=== PATIENT | female | born 1940 | race American Indian/Alaskan Native ===

== ENCOUNTER 2018-05-22 09:18 | Outpatient (CLI) | payer MEDICARE | END 2018-05-22 09:19 | disposition home or self-care (01) | LOC: PAT 09:18 ==

== ENCOUNTER 2018-05-31 09:43 | Day surgery (SDC) | payer MEDICARE ==
[2017-09-28 11:39] VITALS: BMI 30.7
[2018-05-31] MEDS ORDERED: Etomidate 20 mg/10ml Inj IV ONE (12:09)
[2018-05-31] MEDS ORDERED: Propofol 10 mg/ml Inj (20 ML) ONE ×4 (12:09→13:19)
[2018-05-31 15:17] VITALS: PULSE 73; RESP 20; TEMP 97.7; O2SAT 97
[2018-05-31 15:32] VITALS: BP 149/78
--- NOTE | 2018-05-31 18:27 | RAD ---
Date of service: 05/31/2018 HISTORY: POSITIONING OF SCOPE COMPARISON: None available. FINDINGS: BOWEL: Nonspecific bowel gas pattern. Air-filled dilated colonic loop in the right abdomen. Endoscope identified projecting over the abdomen distal tip noted midline the level of L4 vertebral body. BONES: Osseous demineralization. Multilevel degenerative changes. OTHER FINDINGS: Elevation of the right hemidiaphragm. No definite free air. IMPRESSION: Nonspecific bowel gas pattern. Air-filled dilated colonic loop in the right abdomen. Endoscope identified projecting over the abdomen distal tip noted midline the level of L4 vertebral body.
== END 2018-05-31 16:40 | disposition home or self-care (01) ==
LOC: ENDO 09:43
PROVIDERS: ATTEND Internal Medicine Gastroenterology
DX: K21.9 Gastro-esophageal reflux disease without esophagitis (principal); D12.2 Benign neoplasm of ascending colon; D12.3 Benign neoplasm of transverse colon; K29.50 Unspecified chronic gastritis without bleeding; R10.13 Epigastric pain; K57.30 Diverticulosis of large intestine without perforation or abscess without bleeding; K64.8 Other hemorrhoids; I10 Essential (primary) hypertension
CPT/HCPCS: 43239; 45380; 45381; 45385; 74018; 88305; 88312; 88342; J2704; J7040

== ENCOUNTER 2018-07-16 08:41 | Outpatient (CLI) | payer MEDICARE | END 2018-07-16 08:42 | disposition home or self-care (01) | LOC: PAT 08:41 ==

== ENCOUNTER 2018-07-29 07:48 | Inpatient (IN) | payer MEDICARE ==
[2017-09-28 11:39] VITALS: BMI 30.7
[2018-07-29] MEDS ORDERED: metroNIDAZOLE IV 500 mg/100 ml 500 MG/100 ML BAG ONE (08:19)
[2018-07-29] MEDS ORDERED: Bupivacaine 0.5% 50 ML IJ ONE ×2 (08:19→12:01)
[2018-07-29] MEDS ORDERED: cefTRIAXone (Rocephin) 1 gm Inj ONE (08:19)
[2018-07-29 08:23] LABS: BASO # 0.01 K/mm3 (0.0-2.0); BASO % 0.2 % (0.0-3.0); EOS # 0.1 (0.0-0.7); EOS % 1.1 % (1.5-5.0); HEMOGLOBIN 13.5 g/dL (12.0-16.0); LYMPH # 2.3 (1.2-3.4); MEAN CELL VOLUME 79.4 fl (80.0-105.0); MEAN CORPUSCULAR HGB CONC 32.8 g/dl (31.0-37.0); MEAN PLATELET VOLUME 9.3 fl (7.0-11.0); MONO # 0.4 (0.1-0.6); MONO % 5.8 % (1.0-6.0); RBC 5.19 10^6/uL (3.5-6.1); RED CELL DISTRIBUTION WIDTH 14.6 % (11.5-14.5); WHITE BLOOD COUNT 6.3 10^3/uL (4.5-11.0)
[2018-07-29 08:33] LABS: INR 1.05; PROTHROMBIN TIME 11.9 SECONDS (9.4-12.5)
[2018-07-29 08:39] LABS: BLOOD UREA NITROGEN 13 mg/dL (7-21); CALCIUM 9.2 mg/dL (8.4-10.5); GFR NON-AFRICAN AMERICAN 54
[2018-07-29] MEDS ORDERED: Propofol 10 mg/ml Inj (20 ML) ONE (11:40)
[2018-07-29] MEDS ORDERED: MetroNIDAZOLE 500 mg/100 ml IVPB ONE (11:40)
[2018-07-29] MEDS ORDERED: Succinylcholine 200 mg/10 ml Inj IV ONE (11:41)
[2018-07-29] MEDS ORDERED: Rocuronium 10 mg/ml (5 ml) ONE ×2 (11:41→13:08)
[2018-07-29] MEDS ORDERED: ePHEDrine 50 mg/ml Inj ONE (12:15)
[2018-07-29] MEDS ORDERED: Morphine 4 mg/ml ISec ONE (14:31)
[2018-07-29] MEDS ORDERED: Neostigmine Methylsulfate 3mg/3ml Syringe IV ONE (14:47)
[2018-07-29] MEDS ORDERED: HYDROmorphone 0.5 mg/0.5 ml ISec IVP PRN (15:18)
--- NOTE | 2018-07-29 15:20 | PCM.SURG1 ---
Surgeon's Initial Post Op Note - Surgeon's Notes Surgeon: Dr. Yost Burglar Alarm Inspector: Dr. Hammer PGY-4, Dr. Connolly PGY-1, Karlie Killian OMS-III Type of Anesthesia: General Endo, Local Pre-Operative Diagnosis: Sessile tubular adenoma polyp in transverse colon Operative Findings: Sessile tubular adenoma polyp in transverse colon Post-Operative Diagnosis: Tattoed area in transverse colon Operation Performed: Laparoscopic hand assisted transverse colectomy Specimen/Specimens Removed: transverse colon Estimated Blood Loss: EBL {In ML}: 40 Blood Products Given: N/A Drains Used: No Drains Post-Op Condition: Fair Date of Surgery/Procedure: 07/29/18 Time of Surgery/Procedure: 15:19
[2018-07-29] MEDS ORDERED: HYDROmorphone 1 mg/ml ISec IVP PRN (15:23)
[2018-07-29] MEDS ORDERED: Lactated Ringer's 1,000 ML IV SCH ×2 (15:30)
[2018-07-29] MEDS: ceFAZolin 1 gm in NS 1 GM/100 ML BAG IVPB SCH ×2 (17:48→21:44)
[2018-07-29] MEDS ORDERED: Acetaminophen 650mg/20.3ml solution UD PO PRN (18:00)
[2018-07-30] MEDS ORDERED: Pneumococcal 23-Valent Vaccine IM ONE (00:59)
[2018-07-30 06:41] LABS: HEMOGLOBIN 11.9 g/dL (12.0-16.0); MEAN CELL VOLUME 79.7 fl (80.0-105.0); MEAN CORPUSCULAR HEMOGLOBIN 25.8 pg (25.0-35.0); MEAN CORPUSCULAR HGB CONC 32.3 g/dl (31.0-37.0); MEAN PLATELET VOLUME 9.7 fl (7.0-11.0); RBC 4.62 10^6/uL (3.5-6.1); RED CELL DISTRIBUTION WIDTH 14.6 % (11.5-14.5); WHITE BLOOD COUNT 7.6 10^3/uL (4.5-11.0)
[2018-07-30 07:35] LABS: BLOOD UREA NITROGEN 7 mg/dL (7-21); CALCIUM 8.1 mg/dL (8.4-10.5); GFR NON-AFRICAN AMERICAN > 60
[2018-07-30] MEDS ORDERED: HYDROmorphone 0.5 mg/0.5 ml ISec IVP PRN (09:08)
--- NOTE | 2018-07-30 09:12 | CP.PCM.PN ---
<Stephanie Hammer - Last Filed: 07/30/18 09:08> Subjective - Date & Time of Evaluation Date of Evaluation: 07/30/18 Time of Evaluation: 07:00 - Subjective Subjective: GENERAL SURGERY PROGRESS NOTE FOR DR. YOST Patient seen and examined at bedside. She is doing well post op. She hasn't taken any pain medicine post op. Denies nausea or vomiting. Has not been OOB yet. No bowel function yet. Objective - Vital Signs/Intake and Output Vital Signs (last 24 hours): Temp Pulse Resp BP Pulse Ox 99.2 F 79 20 144/68 96 07/30/18 08:57 07/30/18 08:57 07/30/18 08:57 07/30/18 08:57 07/30/18 08:57 Intake and Output: 07/30/18 07/30/18 06:59 18:59 Intake Total 0 Output Total 1225 Balance -1225 - Medications Medications: Current Medications Acetaminophen (Tylenol 650mg/20.3ml Solution Ud) 500 mg PO Q6 PRN PRN Reason: ARTHIRITIS Amlodipine Besylate (Norvasc) 10 mg PO DAILY [facility] Carvedilol (Coreg) 6.25 mg PO BID [facility] Last Admin: 07/29/18 17:48 Dose: 6.25 mg Cholecalciferol (Vitamin D) 1,000 intlu PO DAILY [facility] Enoxaparin Sodium (Lovenox) 40 mg SC DAILY [facility]; Protocol Hydromorphone HCl (Dilaudid) 1 mg IVP Q4 PRN PRN Reason: Pain, severe (8-10) Potassium Chloride 20 meq/ (Dextrose/Sodium Chloride) 1,010 mls @ 100 mls/hr IV .Q10H6M [facility] Latanoprost (Xalatan Opht) 0 ml OD HS [facility] Non-Formulary Medication (Brinzolamide/Brimonidine Tart [Simbrinza 1%-0.2% Eye Drops]) 1 drop RIGHTEYE BID [facility] Ondansetron HCl (Zofran Inj) 4 mg IVP Q4H PRN PRN Reason: Nausea/Vomiting Pantoprazole Sodium (Protonix Ec Tab) 40 mg PO DAILY [facility] - Labs Labs: 07/30/18 06:00 07/30/18 06:00 PT 11.9 SECONDS (9.4-12.5) 07/29/18 08:10 INR 1.05 07/29/18 08:10 APTT 34.0 Seconds (26.9-38.3) 07/29/18 08:10 - Constitutional Appears: Non-toxic, No Acute Distress - Head Exam Head Exam: ATRAUMATIC, NORMAL INSPECTION - Eye Exam Eye Exam: EOMI, Normal appearance - Respiratory Exam Respiratory Exam: NORMAL BREATHING PATTERN. absent: Respiratory Distress - Cardiovascular Exam Cardiovascular Exam: +S1, +S2 - GI/Abdominal Exam GI & Abdominal Exam: Soft, Tenderness (mild leticia-incisional tenderness). absent: Distended, Firm, Guarding, Rigid, Rebound Additional comments: Dermabond in place over incision sites - Neurological Exam Neurological Exam: Alert, Awake, Oriented x3 - Psychiatric Exam Psychiatric exam: Normal Affect, Normal Mood - Skin Skin Exam: Dry, Normal Color, Warm Assessment and Plan - Assessment and Plan (Free Text) Assessment: 78yo F with sessile tubular adenoma polyp in transverse colon s/p laparoscopic hand assisted transverse colectomy POD#1 - Good urine output overnight, DC Perla - Start CLD this AM - Switch LR to D5 1/2NS+ 20K - FU pathology from OR - Monitor for return of bowel function - Strongly encouraged IS and ambulation - PT ordered - DVT PPx: AE hoses, Lovenox to start today - Discussed plan with Dr. Priyank Hammer PGY-4 <Patel Yost - Last Filed: 08/06/18 16:23> Objective - Vital Signs/Intake and Output Vital Signs (last 24 hours): Temp Pulse Resp BP Pulse Ox 98.3 F 67 20 153/75 H 95 08/01/18 08:39 08/01/18 09:08 08/01/18 08:39 08/01/18 09:10 08/01/18 08:39 - Labs Labs: 08/01/18 06:00 08/01/18 06:00 PT 11.9 SECONDS (9.4-12.5) 07/29/18 08:10 INR 1.05 07/29/18 08:10 APTT 34.0 Seconds (26.9-38.3) 07/29/18 08:10 Assessment and Plan - Assessment and Plan (Free Text) Assessment: Patient was seen, evaluated and examined by me at the bedside. I agree with assessment and plan as stated in the resident's note.
[2018-07-30] MEDS ORDERED: Potassium Chloride 20 MEQ in Dextrose 5%/0.45% NS 1,000 ML IV SCH ×2 (09:15→13:56)
[2018-07-30] MEDS: Enoxaparin 40 mg Syringe SC SCH (09:25)
[2018-07-30] MEDS: Cholecalciferol 1,000 INTLU TAB PO SCH (09:27)
[2018-07-30] MEDS: Pantoprazole 40 mg EC Tab PO SCH (09:27)
--- NOTE | 2018-07-30 11:29 | CP.PCM.APN ---
Subjective - Date & Time of Evaluation Date of Evaluation: 07/30/18 Time of Evaluation: 10:00 - Subjective Subjective: Pt. seen and examined, resting comfortably in bed, denied chest discomfort, denied shortness of breath, nausea or vomiting, states no flatus yet. Objective - Vital Signs/Intake and Output Vital Signs (last 24 hours): Temp Pulse Resp BP Pulse Ox 99.2 F 79 20 144/68 96 07/30/18 08:57 07/30/18 09:24 07/30/18 08:57 07/30/18 09:25 07/30/18 08:57 Intake and Output: 07/30/18 07/30/18 06:59 18:59 Intake Total 0 Output Total 1225 Balance -1225 - Medications Medications: Current Medications Acetaminophen (Tylenol 650mg/20.3ml Solution Ud) 500 mg PO Q6 PRN PRN Reason: ARTHIRITIS Amlodipine Besylate (Norvasc) 10 mg PO DAILY [facility] Last Admin: 07/30/18 09:25 Dose: 10 mg Carvedilol (Coreg) 6.25 mg PO BID [facility] Last Admin: 07/30/18 09:24 Dose: 6.25 mg Cholecalciferol (Vitamin D) 1,000 intlu PO DAILY [facility] Last Admin: 07/30/18 09:27 Dose: 1,000 intlu Enoxaparin Sodium (Lovenox) 40 mg SC DAILY [facility]; Protocol Last Admin: 07/30/18 09:25 Dose: 40 mg Hydromorphone HCl (Dilaudid) 0.5 mg IVP Q4 PRN PRN Reason: Pain, severe (8-10) Potassium Chloride 20 meq/ (Dextrose/Sodium Chloride) 1,010 mls @ 100 mls/hr IV .Q10H6M [facility] Latanoprost (Xalatan Opht) 0 ml OD HS [facility] Non-Formulary Medication (Brinzolamide/Brimonidine Tart [Simbrinza 1%-0.2% Eye Drops]) 1 drop RIGHTEYE BID [facility] Ondansetron HCl (Zofran Inj) 4 mg IVP Q4H PRN PRN Reason: Nausea/Vomiting Pantoprazole Sodium (Protonix Ec Tab) 40 mg PO DAILY [facility] Last Admin: 07/30/18 09:27 Dose: 40 mg - Labs Labs: 07/30/18 06:00 07/30/18 06:00 PT 11.9 SECONDS (9.4-12.5) 07/29/18 08:10 INR 1.05 07/29/18 08:10 APTT 34.0 Seconds (26.9-38.3) 07/29/18 08:10 - Constitutional Appears: Well, Non-toxic - Head Exam Head Exam: NORMOCEPHALIC - Eye Exam Eye Exam: Normal appearance - ENT Exam ENT Exam: Normal Exam - Neck Exam Neck Exam: Full ROM - Respiratory Exam Respiratory Exam: Clear to Ausculation Bilateral, NORMAL BREATHING PATTERN - Cardiovascular Exam Cardiovascular Exam: +S1, +S2 - GI/Abdominal Exam GI & Abdominal Exam: Soft, Diminished Bowel Sounds - Rectal Exam Rectal Exam: Deferred - Exam Exam: absent: Circumcision, NORMAL INSPECTION, Scrotal Swelling, Testicular Tenderness, Uretheral Discharge, Testicular Vertical Lie, Bladder Distension External exam: absent: Ecchymosis, Erythema, Lacerations, Lesions, NORMAL EXTERNAL EXAM, Swelling Speculum exam: absent: Cervical Discharge, Erythema, Foreign Body, Laceration, NORMAL SPECULUM EXAM, Tissue, Vaginal Bleeding, Vaginal Discharge Bimanual exam: absent: Adenexal Mass, Adnexal, Cervical Motion Tendernes, NORMAL BIMANUAL EXAM, Uterine Enlargement, Uterine Tenderness - Extremities Exam Extremities Exam: Full ROM, Normal Inspection - Back Exam Back Exam: Full ROM, NORMAL INSPECTION - Neurological Exam Neurological Exam: Alert, Awake, Normal Gait, Oriented x3 - Psychiatric Exam Psychiatric exam: Normal Affect, Normal Mood - Skin Skin Exam: Dry, Intact, Normal Color, Warm Assessment and Plan - Assessment and Plan (Free Text) Assessment: Assessment: 78yo F with phx, Gerd,htn, colon polyps tubular adenoma polyp in transverse colon s/p laparoscopic hand assisted transverse colectomy POD#1, admitted post op for further eval and treatment. Plan: 1. Tubular adenoma transverse colon, pod1 laparoscopic transverse colectomy 2. Encourage incentive spirometer, diet advanced to full liquids for dinner , a waiting return of bowel function, DVT prophylaxis, PT eval pending, encouraged OOB with assistance, karli [email or web address]'rashel. Will continue to monitor clinical status and follow closely.
[2018-07-30] MEDS: BRINZOLAMIDE RIGHTEYE SCH ×2 (13:40→17:11)
[2018-07-30] MEDS: [UNRECOGNIZED DRUG - OTHER] RIGHTEYE SCH ×2 (13:40→17:11)
[2018-07-30] MEDS: BRIMONIDINE TART RIGHTEYE SCH ×2 (13:40→17:11)
[2018-07-30 16:10] VITALS: O2SAT 95
[2018-07-30] MEDS: Latanoprost 2.5 ml Opht Soln OD SCH (21:05)
[2018-07-31] MEDS ORDERED: HYDROmorphone 1 mg/ml ISec IVP PRN (05:45)
[2018-07-31 07:22] LABS: HEMOGLOBIN 11.2 g/dL (12.0-16.0); MEAN CELL VOLUME 79.6 fl (80.0-105.0); MEAN CORPUSCULAR HEMOGLOBIN 25.4 pg (25.0-35.0); MEAN CORPUSCULAR HGB CONC 31.9 g/dl (31.0-37.0); MEAN PLATELET VOLUME 9.3 fl (7.0-11.0); RBC 4.41 10^6/uL (3.5-6.1); RED CELL DISTRIBUTION WIDTH 14.4 % (11.5-14.5); WHITE BLOOD COUNT 6.1 10^3/uL (4.5-11.0)
[2018-07-31 07:34] LABS: BLOOD UREA NITROGEN 4 mg/dL (7-21); CALCIUM 8.1 mg/dL (8.4-10.5); GFR NON-AFRICAN AMERICAN > 60
[2018-07-31 08:29] VITALS: RESP 20
--- NOTE | 2018-07-31 09:51 | CP.PCM.PCO ---
Physician Communication Note - Physician Communication Note Physician Communication Note: diet advanced to full liquids,no flatus reported,advance diet pending flatu
[2018-07-31] MEDS: [UNRECOGNIZED DRUG - OTHER] RIGHTEYE SCH (11:26)
[2018-07-31] MEDS: BRINZOLAMIDE RIGHTEYE SCH (11:26)
[2018-07-31] MEDS: Cholecalciferol 1,000 INTLU TAB PO SCH (11:26)
[2018-07-31] MEDS: Enoxaparin 40 mg Syringe SC SCH (11:26)
[2018-07-31] MEDS: Pantoprazole 40 mg EC Tab PO SCH (11:26)
[2018-07-31] MEDS: BRIMONIDINE TART RIGHTEYE SCH (11:26)
--- NOTE | 2018-07-31 13:45 | CP.PCM.PN ---
<Kimberly Linares - Last Filed: 07/31/18 16:40> Subjective - Date & Time of Evaluation Date of Evaluation: 07/31/18 Time of Evaluation: 13:44 - Subjective Subjective: General Surgery Dr. Yost Pt seen and examined @bedside. No acute events overnight. Pt has no complaints this AM. pain well controlled. tolerating FLD. denies F/C, N/V, D/C. (- )BM/Flatus Objective - Vital Signs/Intake and Output Vital Signs (last 24 hours): Temp Pulse Resp BP Pulse Ox 98.8 F 69 20 158/69 H 95 07/31/18 08:29 07/31/18 09:00 07/31/18 08:29 07/31/18 09:00 07/31/18 08:29 Intake and Output: 07/31/18 07/31/18 06:59 18:59 Intake Total 120 Balance 120 - Medications Medications: Current Medications Acetaminophen (Tylenol 650mg/20.3ml Solution Ud) 500 mg PO Q6 PRN PRN Reason: ARTHIRITIS Amlodipine Besylate (Norvasc) 10 mg PO DAILY [facility] Last Admin: 07/31/18 09:00 Dose: 10 mg Carvedilol (Coreg) 6.25 mg PO BID [facility] Last Admin: 07/31/18 09:00 Dose: 6.25 mg Cholecalciferol (Vitamin D) 1,000 intlu PO DAILY [facility] Last Admin: 07/31/18 11:26 Dose: 1,000 intlu Enoxaparin Sodium (Lovenox) 40 mg SC DAILY [facility]; Protocol Last Admin: 07/31/18 11:26 Dose: 40 mg Ibuprofen (Motrin Tab) 400 mg PO Q6H PRN PRN Reason: Pain, Mild (1-3) Latanoprost (Xalatan Opht) 0 ml OD HS [facility] Last Admin: 07/30/18 21:05 Dose: 2.5 ml Non-Formulary Medication (Brinzolamide/Brimonidine Tart [Simbrinza 1%-0.2% Eye Drops]) 1 drop RIGHTEYE BID [facility] Last Admin: 07/31/18 11:26 Dose: Not Given Ondansetron HCl (Zofran Inj) 4 mg IVP Q4H PRN PRN Reason: Nausea/Vomiting Pantoprazole Sodium (Protonix Ec Tab) 40 mg PO DAILY [facility] Last Admin: 07/31/18 11:26 Dose: 40 mg - Labs Labs: 07/31/18 07:00 07/31/18 07:00 PT 11.9 SECONDS (9.4-12.5) 07/29/18 08:10 INR 1.05 07/29/18 08:10 APTT 34.0 Seconds (26.9-38.3) 07/29/18 08:10 - Constitutional Appears: Non-toxic, No Acute Distress - Head Exam Head Exam: NORMAL INSPECTION - Eye Exam Eye Exam: Normal appearance - ENT Exam ENT Exam: Mucous Membranes Moist - Respiratory Exam Respiratory Exam: NORMAL BREATHING PATTERN. absent: Accessory Muscle Use, Respiratory Distress - Cardiovascular Exam Cardiovascular Exam: REGULAR RHYTHM. absent: Bradycardia, Tachycardia - GI/Abdominal Exam GI & Abdominal Exam: Soft, Tenderness (appropriate TTP). absent: Distended, Firm, Guarding, Rigid, Normal Bowel Sounds, Rebound - Extremities Exam Extremities Exam: Normal Inspection - Neurological Exam Neurological Exam: Alert, Awake, Oriented x3 - Psychiatric Exam Psychiatric exam: Normal Affect. absent: Normal Mood - Skin Skin Exam: Dry, Intact, Normal Color, Warm Assessment and Plan (1) Tubular adenoma of colon Assessment & Plan: POD#2 s/p laparoscopic transverse colectomy f/u pathology cont FLD, d/c IVF monitor UOP monitor bowel function pain well controlled d/c narcotics encourage OOB to chair/Amb/IS use DVT PPx PT/OT eval&treat Status: Acute (2) HTN (hypertension), benign Assessment & Plan: cont home meds monitor vitals Status: Chronic (3) GERD (gastroesophageal reflux disease) Assessment & Plan: cont Protonix cont FLD monitor Status: Chronic <Patel Yost - Last Filed: 08/06/18 16:21> Subjective - Subjective Subjective: Patient was seen, evaluated and examined by me at the bedside. I agree with assessment and plan as stated in the resident's note. Objective - Vital Signs/Intake and Output Vital Signs (last 24 hours): Temp Pulse Resp BP Pulse Ox 98.3 F 67 20 153/75 H 95 08/01/18 08:39 08/01/18 09:08 08/01/18 08:39 08/01/18 09:10 08/01/18 08:39 - Labs Labs: 08/01/18 06:00 08/01/18 06:00 PT 11.9 SECONDS (9.4-12.5) 07/29/18 08:10 INR 1.05 07/29/18 08:10 APTT 34.0 Seconds (26.9-38.3) 07/29/18 08:10
[2018-07-31] MEDS: Latanoprost 2.5 ml Opht Soln OD SCH (21:47)
[2018-08-01 06:45] LABS: HEMOGLOBIN 13.1 g/dL (12.0-16.0); MEAN CELL VOLUME 79.7 fl (80.0-105.0); MEAN CORPUSCULAR HEMOGLOBIN 26.1 pg (25.0-35.0); MEAN CORPUSCULAR HGB CONC 32.8 g/dl (31.0-37.0); MEAN PLATELET VOLUME 9.6 fl (7.0-11.0); RBC 5.02 10^6/uL (3.5-6.1); RED CELL DISTRIBUTION WIDTH 14.5 % (11.5-14.5); WHITE BLOOD COUNT 5.6 10^3/uL (4.5-11.0)
[2018-08-01 06:58] LABS: BLOOD UREA NITROGEN 4 mg/dL (7-21); CALCIUM 8.9 mg/dL (8.4-10.5); GFR NON-AFRICAN AMERICAN > 60
--- NOTE | 2018-08-01 08:13 | CP.PCM.DIS ---
Provider - Provider Date of Admission: 07/29/18 15:30 Attending physician: Patel Yost MD Primary care physician: Silvestre Ulrich MD Consults: 07/30/18 00:59 Nursing Referral for Wound Care Routine Comment: POST LAP HAND ASSISTED TRANSVERSE COLECTOMY Physician Instructions: Reason For Exam: EVALUATION 07/30/18 01:06 Social Work Referral Routine Comment: DISCHARGE PLANNING Physician Instructions: Reason For Exam: EVALUATION Time Spent in preparation of Discharge (in minutes): 35 Diagnosis - Discharge Diagnosis (1) GERD (gastroesophageal reflux disease) Status: Chronic (2) HTN (hypertension), benign Status: Chronic Hospital Course - Lab Results Lab Results: Most Recent Lab Values WBC 5.6 10^3/uL (4.5-11.0) 08/01/18 06:00 RBC 5.02 10^6/uL (3.5-6.1) 08/01/18 06:00 Hgb 13.1 g/dL (12.0-16.0) 08/01/18 06:00 Hct 40.0 % (36.0-48.0) 08/01/18 06:00 MCV 79.7 fl (80.0-105.0) L 08/01/18 06:00 MCH 26.1 pg (25.0-35.0) 08/01/18 06:00 MCHC 32.8 g/dl (31.0-37.0) 08/01/18 06:00 RDW 14.5 % (11.5-14.5) 08/01/18 06:00 Plt Count 327 10^3/uL (120.0-450.0) 08/01/18 06:00 MPV 9.6 fl (7.0-11.0) 08/01/18 06:00 Neut % (Auto) 56.9 % (50.0-68.0) 07/29/18 08:10 Lymph % (Auto) 36.0 % (22.0-35.0) H 07/29/18 08:10 Davidson % (Auto) 5.8 % (1.0-6.0) 07/29/18 08:10 Eos % (Auto) 1.1 % (1.5-5.0) L 07/29/18 08:10 Baso % (Auto) 0.2 % (0.0-3.0) 07/29/18 08:10 Lymph # (Auto) 2.3 (1.2-3.4) 07/29/18 08:10 Davidson # (Auto) 0.4 (0.1-0.6) 07/29/18 08:10 Eos # (Auto) 0.1 (0.0-0.7) 07/29/18 08:10 Baso # (Auto) 0.01 K/mm3 (0.0-2.0) 07/29/18 08:10 Absolute Neuts (auto) 3.56 (1.4-6.5) 07/29/18 08:10 PT 11.9 SECONDS (9.4-12.5) 07/29/18 08:10 INR 1.05 07/29/18 08:10 APTT 34.0 Seconds (26.9-38.3) 07/29/18 08:10 Sodium 142 mmol/L (132-148) 08/01/18 06:00 Potassium 3.8 mmol/L (3.6-5.0) 08/01/18 06:00 Chloride 107 mmol/L (98-107) 08/01/18 06:00 Carbon Dioxide 28 mmol/L (21-33) 08/01/18 06:00 Anion Gap 11 (10-20) 08/01/18 06:00 BUN 4 mg/dL (7-21) L 08/01/18 06:00 Creatinine 0.6 mg/dl (0.7-1.2) L 08/01/18 06:00 Est GFR ( Amer) > 60 08/01/18 06:00 Est GFR (Non-Af Amer) > 60 08/01/18 06:00 Random Glucose 103 mg/dL (70-110) 08/01/18 06:00 Calcium 8.9 mg/dL (8.4-10.5) 08/01/18 06:00 Blood Type O POSITIVE 07/29/18 08:10 Antibody Screen Negative 07/29/18 08:10 BBK History Checked Patient has bt 07/29/18 08:10 - Hospital Course Hospital Course: On admission: Pt presented to [facility] on 07/29/18 for sessile tubular adenoma polyp noted on colonoscopy, not amenable to removal during colonoscopy. Hospital course: Pt underwent laproscopic hand-assisted transverse colectomy due to sessile tubular adenoma polyp in transverse colon on 07/29/[address] Yost. Procedure was uncomplicated, and pt progress appropriately post-op. On discharge interview, reports pain is well tolerated. Denies fever, chills, chest pain, sob, abdominal pain, n/v/d, hematochezia, melena, dizziness, weakness, urinary difficulties, hematuria. Pt is tolerating regular diet. Pt is ambulating well without difficulty with single point cane. Pt instructed on use of incentive spirometer and encouraged to use it every hour. This is a summary of the hospital course. Please see EMR for full details. Discharge Exam - Head Exam Head Exam: NORMAL INSPECTION - Eye Exam Eye Exam: EOMI, Normal appearance - ENT Exam ENT Exam: Mucous Membranes Moist - Respiratory Exam Respiratory Exam: Decreased Breath Sounds, NORMAL BREATHING PATTERN. absent: Rales, Rhonchi, Wheezes, Respiratory Distress, Stridor - Cardiovascular Exam Cardiovascular Exam: REGULAR RHYTHM, +S1, +S2. absent: Tachycardia - GI/Abdominal Exam GI & Abdominal Exam: Normal Bowel Sounds, Soft, Tenderness (minimal tenderness diffusely; no suprapubic tenderness). absent: Diminished Bowel Sounds, Distended, Firm, Guarding, Rebound, Rigid Additional comments: (+) supraumbilical dressing c/d/i; no signs of infection (+) trochar insertion sites are nontender, nonbleding; no signs of infection - Extremities Exam Extremities exam: normal capillary refill, pedal pulses present Additional comments: no calf tenderness, no pedal edema (+) sharma cyst to left popliteal region; nontender - Back Exam Back exam: absent: CVA tenderness (L), CVA tenderness (R) - Neurological Exam Neurological exam: Alert - Psychiatric Exam Psychiatric exam: Normal Affect, Normal Mood - Skin Skin Exam: Dry, Normal Color, Warm Discharge Plan - Follow Up Plan Condition: GOOD Disposition: HOME/ ROUTINE Instructions: Hypertension (DC), Hypertension (GEN) Additional Instructions: Pt is stable for discharge home as per Dr. Yost. Pt should continue taking her home medications as previously prescribed. Pt can use Motrin/Tylenol as needed for pain, do not exceed daily maximum doses. Please take Motrin with food. Pt should follow up with her PMD at her regularly scheduled appointment. Pt should follow up with Dr. Yost in 2 weeks from discharge. Instructions explained to the pt, who understand and agree with discharge plan. Referrals: Silvestre Ulrich MD [Primary Care Provider] - Patel Yost MD [Staff Provider] -
[2018-08-01 08:40] VITALS: BP 153/75; PULSE 67; TEMP 98.3
[2018-08-01] MEDS: BRIMONIDINE TART RIGHTEYE SCH (09:08)
[2018-08-01] MEDS: [UNRECOGNIZED DRUG - OTHER] RIGHTEYE SCH (09:08)
[2018-08-01] MEDS: BRINZOLAMIDE RIGHTEYE SCH (09:08)
[2018-08-01] MEDS: Enoxaparin 40 mg Syringe SC SCH (09:09)
[2018-08-01] MEDS: Pantoprazole 40 mg EC Tab PO SCH (09:11)
[2018-08-01] MEDS: Cholecalciferol 1,000 INTLU TAB PO SCH (09:11)
--- NOTE | 2018-08-06 01:36 | OP ---
PROCEDURE DATE: 07/29/2018 PREOPERATIVE DIAGNOSIS: Sessile polyps of the transverse colon. POSTOPERATIVE DIAGNOSIS: Sessile polyps of the transverse colon. PROCEDURES PERFORMED: 1. Laparoscopic transverse colectomy. 2. Splenic flexure mobilization. 3. Lysis of dense intraabdominal adhesions. SURGEON: Patel Yost MD INTERNATIONAL STUDENT COUNSELOR: Stephanie Hammer DO ANESTHESIOLOGIST: Alex Bose MD ANESTHESIA: General endotracheal anesthesia. ESTIMATED BLOOD LOSS: Minimal. SPECIMEN: Transverse colon. INDICATIONS: The patient is a 78-year-old female with history of sessile polyps in the transverse colon which were marked in [place] ink by GI Service. The patient had attempted endoscopic mucosal resection, however, with no success, and the sessile polyp needed to be resected together with the colon. The patient was scheduled for a surgical excision. DESCRIPTION OF PROCEDURE: The patient was brought to the operating room and placed on the operating table in supine position. The patient was connected to the EKG, blood pressure, and pulse oximetry monitors. The patient then underwent general endotracheal anesthesia and was prepped and draped in the usual sterile fashion. First, a standard time-out procedure took place when everybody in the room agreed as to the patient's identity, diagnoses, and the procedure to be performed. Using lidocaine mixed with Marcaine, the area of the umbilicus was infiltrated in a vertical position in order to make an incision for a 12-mm trocar. Once that incision was made through the skin and subcutaneous fat, the Veress needle was inserted after the abdominal wall was elevated with two towel clamps. Once the Veress needle was in place, the pneumoperitoneum was obtained and 12 mm trocar was inserted through that incision. Careful evaluation of the abdominal cavity revealed the presence of dense intraabdominal adhesions of the omentum to the anterior abdominal wall as well as lateral wall on the right side near the liver. There was also multiple effusion of the omentum through the anterior abdominal wall on the left upper quadrant and left side of the abdomen. I then placed two 5 mm trocars lateral to the rectus muscle on the left and proceeded with careful evaluation of the colon. The transverse colon was carefully followed. However, due to the adhesions, we got to take time noted to lyse the adhesions both on the left and right side. In that process, we were able to expose the area of the transverse colon with the marking of the tattoo. Then, dissection for lysis of adhesions to get over an hour and 10 minutes. We then proceeded with further dissection of the area with the lesion which appeared to be located just about 5 cm lateral to the left branch of the transverse colic artery. I then proceeded mobilizing the hepatic flexure first in order to gain adequate length for mobilization of the transverse colon for resection. Once this was done, I then entered the lesser sac and mobilized the transverse colon all the way up to the splenic flexure. The splenic flexure was then tediously dissected out in order to expose the entire transverse colon and carefully released in order to expose the proximal portion of the descending colon. Once this mobilization took place and the mesentery of the transverse colon especially in the area of the splenic flexure was pulled and mobilized, I then proceed with making an incision at the base of the mesentery along the transverse colon mid portion, extended it towards the transverse colic artery, and went along that up towards the colon taking down the left branch of the transverse colic artery using Harmonic scalpel. Once this was ready and dissected out fully towards the wall of the colon, I proceeded mobilizing this mesentery of the transverse colon to the left of the midline and extending it for about 10-15 cm distal to the marked lesion. Again, the mesentery was transected all the way down to the bowel wall of the transverse colon. Prior to mobilization of the left side of the abdomen, two 5 mm trocars were placed on the right side lateral to the rectus muscle in order to be able to mobilize abdominal structures on the left. Now, since the transverse colon was fully mobilized, I then proceeded making an incision extending the 10 mm trocar incision up and down for about 7 cm. A wound protector was placed into the abdominal cavity and hinged in order to protect the wound. The transverse colon was brought out through that opening with the attached omentum to that portion of the colon. Using GI staplers, we were able to transect the transverse colon first proximally just lateral to the right branch of the transverse colon artery, and the second time at about 15 cm distal to the specimen, closure to the splenic flexure which was mobilized adequately for anastomosis. Next the specimen was removed, and the ends of the transverse colon were connected using [id number] anastomosis with MAIRA and TA staplers. The anastomosis was reinforced with extra stitch in the crotch of the anastomosis and returned into the abdominal cavity after it deemed to be hemostatic. We then proceeded with closing of the abdominal cavity and we insufflated and evaluated the abdominal cavity with no evidence of any bleeding. There were no other areas of concern. The liver appears to have some clear cysts on its surface especially on the left side of the liver, but no evidence of any suspicious masses. Once this was done, all the drops of blood from the abdominal cavity was suctioned out. There was excellent hemostasis everywhere. The pneumoperitoneum was released, trocars removed, and the wound was closed using 0 Vicryl for the fascia, 3-0 Vicryl for the subcutaneous tissue, and 4-0 Monocryl for the skin. Sterile Dermabond dressing was applied to all the wounds. The patient tolerated the procedure well, and there were no complications. The patient was awakened and transferred to recovery room for further observation. Patel Yost MD AMA[facility]
== END 2018-08-01 17:29 | disposition home or self-care (01) | DRG 331 ==
LOC: SDS 07:48 → 3RSO 15:30 → ERH 07-31 19:57 → 3RSO 07-31 19:58
PROVIDERS: ADMIT General Practice; ATTEND General Practice
PROC: 0DNU4ZZ Release Omentum, Percutaneous Endoscopic Approach (ICD-10-PCS; 2018-07-29)
PROC: 0DBL4ZZ Excision of Transverse Colon, Percutaneous Endoscopic Approach (ICD-10-PCS; principal; 2018-07-29 09:30)
DX: D12.3 Benign neoplasm of transverse colon (principal); K66.0 Peritoneal adhesions (postprocedural) (postinfection); I10 Essential (primary) hypertension; K21.9 Gastro-esophageal reflux disease without esophagitis